=== PATIENT | female | born 1985 | race Two or more races ===

== ENCOUNTER 2024-09-19 16:55 | Emergency (ER) | payer OTHER ==
[~2024-09-19] VITALS: Ht 154.9 cm; Wt 110.7 kg
[2024-09-19] MEDS ORDERED: LABETALOL HCL200 MG (17:14)
[2024-09-19] MEDS ORDERED: PRENATAL 19 CH1 EAC1 (17:14)
== END 2024-09-19 20:36 | disposition home or self-care (01) ==
LOC: ER 16:58
DX: O98.512 Other viral diseases complicating pregnancy, second trimester (principal); Z22.8 Carrier of other infectious diseases; Z3A.27 27 weeks gestation of pregnancy; J11.1 Influenza due to unidentified influenza virus with other respiratory manifestations

== ENCOUNTER 2024-11-08 13:04 | Outpatient (CLI) | payer OTHER ==
[~2024-11-08 13:04] MED LIST: LABETALOL HCL200 MG; PRENATAL 19 CH1 EAC1
== END 2024-11-08 13:52 | disposition home or self-care (01) ==
LOC: NST 13:04
PROVIDERS: ATTEND Obstetrics & Gynecology Maternal & Fetal Medicine
DX: Z3A.34 34 weeks gestation of pregnancy (principal)

== ENCOUNTER → 2024-11-16 | Outpatient (CLI) | payer OTHER | END | disposition home or self-care (01) | LOC: NST 09:50 | PROVIDERS: ATTEND Obstetrics & Gynecology Maternal & Fetal Medicine | DX: Z3A.35 35 weeks gestation of pregnancy (principal) ==

== ENCOUNTER 2024-11-23 12:13 | Inpatient (IN) | payer OTHER ==
[~2024-11-23] VITALS: Ht 154.9 cm; Wt 1.8 kg
[~2024-11-23 12:13] MED LIST changes: -LABETALOL HCL200 MG; +LABETALOL HCL200 MG PO
[2024-11-23 12:18] VITALS: BP 114/70
[2024-11-23] MEDS ORDERED: TERBUTALINE SULFATE 1 MG/ML AMPUL SUBCUTANEO STA (12:27)
[2024-11-23] MEDS ORDERED: AMPICILLIN SODIUM 2,000 MG VIAL IV STA (12:28)
[2024-11-23] MEDS ORDERED: RINGERS SOLUTION,LACTATED 1,000 ML IV SCH (12:30)
[2024-11-23] MEDS ORDERED: CITRIC ACID/SODIUM CITRATE 30 ML BLIST.PACK PO SCH (12:30)
[2024-11-23] MEDS ORDERED: AMPICILLIN SODIUM 2,000 MG VIAL ONE (12:32)
[2024-11-23 13:05] LABS: HEMATOCRIT 37.9 % (36.0-45.00); HEMOGLOBIN 12.5 g/dL (12.0-15.00); MEAN CELL VOLUME 84.5 fL (80.00-100.00); MEAN CORPUSCULAR HEMOGLOBIN 27.9 pg (27.00-32.0); MEAN CORPUSCULAR HGB CONC 33.1 g/dl (32.0-36.0); PLATELET COUNT 348 K/uL (150-450); RED BLOOD COUNT 4.48 M/uL (4.00-6.00); RED CELL DISTRIBUTION WIDTH 13.9 % (11.5-14.5)
[2024-11-23 13:25] LABS: INR 0.94; PROTHROMBIN TIME 10.3 SECONDS (9.0-11.5)
[2024-11-23 13:41] LABS: ALBUMIN 2.5 gm/dL (3.4-5.0); BILIRUBIN TOTAL 0.43 mg/dL (0.3-1.2); CALCIUM 9.1 mg/dL (8.5-10.1); CREATININE SERUM 0.65 mg/dL (0.55-1.02); GFR 102.56; GLOBULINA 4.1 G/DL (2.4-3.5); POTASSIUM 3.99 mEq/L (3.5-5.1); TOTAL PROTEIN 6.6 gm/dL (6.4-8.2)
[2024-11-23] MEDS ORDERED: ERYTHROMYCIN BASE OPHT 1GM EACH TUBE OP ONE (13:42)
[2024-11-23] MEDS ORDERED: OXYTOCIN 10 UNITS/ML VIAL ONE ×2 (13:42→17:58)
[2024-11-23] MEDS ORDERED: MORPHINE SULFATE 4 MG/ML CARTRIDGE IV PRN (15:15)
[2024-11-23] MEDS ORDERED: OXYTOCIN 1,000 ML IV SCH (15:15)
[2024-11-23] MEDS ORDERED: AMPICILLIN SODIUM 1,000 MG VIAL IV SCH (17:00)
[2024-11-23] MEDS ORDERED: AMPICILLIN SODIUM 1,000 MG VIAL ONE (17:26)
[2024-11-23] MEDS ORDERED: MORPHINE SULFATE 4 MG/ML VIAL IV ONE (18:10)
[2024-11-23 18:44] VITALS: BP 125/74; O2SAT 99
[2024-11-23] MEDS ORDERED: LABETALOL HCL 200 MG TABLET PO SCH (21:00)
[2024-11-24 01:16] VITALS: BP 146/77
[2024-11-24 08:00] VITALS: BP 116/77
[2024-11-24] MEDS ORDERED: FF) RHO(D) IMMUNE GLOBULIN (POM) IM ONE (08:00)
[2024-11-24] MEDS ORDERED: IBUprofen 400 MG TABLET PO SCH (09:00)
[2024-11-24 11:24] LABS: HEMOGLOBIN 12.1 g/dL (12.0-15.00); MEAN CELL VOLUME 84.2 fL (80.00-100.00); MEAN CORPUSCULAR HEMOGLOBIN 28.3 pg (27.00-32.0); MEAN CORPUSCULAR HGB CONC 33.6 g/dl (32.0-36.0); PLATELET COUNT 348 K/uL (150-450); RED BLOOD COUNT 4.27 M/uL (4.00-6.00); RED CELL DISTRIBUTION WIDTH 14.3 % (11.5-14.5)
[2024-11-24 16:12] VITALS: BP 117/74
[2024-11-24 23:59] VITALS: BP 97/63
[2024-11-25] MEDS ORDERED: OxyCODONE HCL 5 MG TABLET (ROXICODONE) PO PRN (06:00)
[2024-11-25 08:54] VITALS: BP 107/65
== END 2024-11-25 12:33 | disposition home or self-care (01) | DRG 786 ==
LOC: LDR 12:13 → O/R 12:13 → OB/GYN 17:01
PROVIDERS: ADMIT Obstetrics & Gynecology; ATTEND Obstetrics & Gynecology
PROC: 4A1HXCZ Monitoring of Products of Conception, Cardiac Rate, External Approach (ICD-10-PCS; 2024-11-23)
PROC: 10D00Z1 Extraction of Products of Conception, Low, Open Approach (ICD-10-PCS; principal; 2024-11-23 14:00)
DX: O32.1XX0 Maternal care for breech presentation, not applicable or unspecified (principal); O60.14X0 Preterm labor third trimester with preterm delivery third trimester, not applicable or unspecified; O36.5930 Maternal care for other known or suspected poor fetal growth, third trimester, not applicable or unspecified; Z3A.36 36 weeks gestation of pregnancy; Z37.0 Single live birth